=== PATIENT | male | born 1960 | race Caucasian/White ===

== ENCOUNTER 2023-10-27 18:30 | Emergency (ER) | payer MEDICARE, OTHER ==
[2023-10-27] MEDS: Mupirocin Oint 22 GM Tube TOP SCH (19:55)
[2023-10-27] MEDS: Diphtheria,Pertussis(Acell),Tetanus Vaccine 0.5 ML Syringe IM ONE (19:56)
[2023-10-27] MEDS: Cephalexin 500 MG Cap PO ONE (19:59)
== END 2023-10-27 20:10 | disposition home or self-care (01) ==
LOC: FB.ED 18:30
DX: S61.203A Unspecified open wound of left middle finger without damage to nail, initial encounter (principal); Z23 Encounter for immunization; W26.8XXA Contact with other sharp object(s), not elsewhere classified, initial encounter
CPT/HCPCS: 73130; 90471; 90715; 99283; A9270